=== PATIENT | male | born 1955 | race Hispanic/Latino ===

== ENCOUNTER 2019-02-16 17:54 | Inpatient (IN) | payer OTHER, MEDICARE ==
--- NOTE | 2019-02-16 18:36 | Emergency Department Report ---
HPI - General Chief Complaint: Dyspnea/Respdistress Time Seen by Provider: 02/16/19 18:24 - HPI HPI: 63-year-old male presents to the emergency department by EMS with complaint of shortness of breath, syncope versus near syncope, and a questionab le arrhythmia. The patient and his were driving on their way home to [place] when they stopped at a rest stop. The patient was using the restroom and was bending over to lift up his pants when he became lightheaded and fell face down. The patient says that he does not think he lost consciousness and remembers this occurring but he was too weak to get up and his family was unable to lift him. EMS was called and the patient was found to have a pulse ox of 73%. He had an EKG done that at one point looks suspicious for a slow V. tach or arrhythmia. The patient has a past medical history of coronary artery disease with 3 previous FL and 5 stents. He also has a hx of COPD but is not antoniet[place] e O2 dependent, and a hx of paroxysmal A-fib but not on blood thinners. He has both a PCP and a delivery consultant in [place]. ED Past Medical Hx - Past Medical History Previous Medical History?: Yes Hx Hypertension: Yes Hx Heart Attack/AMI: Yes (x3) Additional medical history: Cardiomyopathy, COPD, A-fib, - Surgical History Past Surgical History?: Yes Additional Surgical History: 5 cardiac stents - Social History Smoking Status: Never Smoker ED Review of Systems ROS: Stated complaint: NASRIN Other details as noted in HPI Comment: All other systems reviewed and negative Constitutional: weakness. denies: chills, fever Eyes: denies: eye pain, vision change ENT: denies: ear pain, throat pain Respiratory: shortness of breath. denies: cough Cardiovascular: syncope (vs near syncope). denies: chest pain, palpitations Gastrointestinal: denies: abdominal pain, vomiting Genitourinary: denies: dysuria, discharge Musculoskeletal: denies: back pain, arthralgia Skin: denies: rash, lesions Neurological: other (lightheaded, dizzy). denies: headache Physical Exam - Physical Exam Vital Signs: Vital Signs 02/16/19 18:04 Temperature 98.2 F Physical Exam: GENERAL: The patient is well-developed well-nourished. HENT: Normocephalic. Atraumatic. Patient has moist mucous membranes. EYES: Extraocular motions are intact. Pupils equal reactive to light bilaterally. NECK: Supple. Trachea is midline. CHEST/LUNGS: Clear to auscultation. There is no respiratory distress noted. HEART/CARDIOVASCULAR: Regular. There is no tachycardia. There is no murmur. ABDOMEN: Abdomen is soft, nontender. Patient has normal bowel sounds. There is no abdominal distention. SKIN: There is a 0.5 superficial laceration to the lower mid forehead. There is a 1 cm superficial linear laceration to the nasal bridge. NEURO: The patient is awake, alert, and oriented. The patient is cooperative. The patient has no focal neurologic deficits. The patient has normal speech. MUSCULOSKELETAL: There is no tenderness or deformity. There is no evidence of acute injury. ED Course Vital Signs 02/16/19 18:04 Temperature 98.2 F - Consultations Consultation #1: 02/16/19 23:44 I spoke with the delivery consultant university controller, Dr Ledbetter, who is aware of the patient's presentation, ED course and plan for admission. He will consult on the patient. - Procedure Description Procedures done: The small forehead and nasal bridge lacerations were repaired with Steri-Strips and Dermabond. ED Medical Decision Making - Lab Data Result diagrams: 02/16/19 18:40 02/16/19 18:40 - EKG Data -: EKG Interpreted by Me EKG shows normal: sinus rhythm (junctional rhythm), axis, intervals (prolonged QTC), QRS complexes (Q waves to the anterior leads), ST-T waves (nonspecific ST- T waves) Rate: tachycardia (101 bpm) - EKG Data When compared to previous EKG there are: previous EKG unavailable Interpretation: other (junctional rhythm, normal axis, prolonged QTC, Q waves in the anterior leads, nonspecific ST-T waves) - Radiology Data Radiology results: report reviewed, image reviewed interpreted by me: Chest x-ray does not show any pneumonia, pleural effusions, pneumothorax, focal consolidation, or any other acute process. CTA CHEST WITH IV CONTRAST INDICATION / CLINICAL INFORMATION: Syncope, elevated dimer. TECHNIQUE: Axial CT images were obtained through the chest after injection of 100 cc IV contrast. 3 plane MIP and/or 3D reconstructions were produced. All CT scans at this location are performed using CT dose reduction for ALARA by means of automated exposure control. COMPARISON: Portable chest radiograph, 02/16/2019 FINDINGS: PULMONARY ARTERIES: No pulmonary emboli. THORACIC AORTA: There is mild to moderate calcific plaque throughout the thoracic aorta but no evidence of dissection or aneurysm. HEART: No significant abnormality. CORONARY ARTERIES: Coronary artery calcification is present. PLEURA: No pleural effusion. No pneumothorax. LYMPH NODES: No significant adenopathy. LUNGS: There is prominent emphysema present with chronic appearing interstitial lung disease. No focal area of pneumonia or mass identified. ADDITIONAL FINDINGS: None. UPPER ABDOMEN: No acute findings. SKELETAL STRUCTURES: Mild spondylitic changes present throughout the thoracic spine. IMPRESSION: 1. No CT evidence for pulmonary embolism. No evidence for pneumonia. 2. Severe COPD with chronic interstitial lung disease. 3. Atherosclerotic plaque identified in the thoracic aorta and coronary arteries. CT head/brain wo con INDICATION: dizziness. TECHNIQUE: All CT scans at this location are performed using CT dose reduction for ALARA by means of automated exposure control. COMPARISON: None available. FINDINGS: There is some increased opacity in the left mastoid sinus, possibly representing mastoiditis. Postop change in both maxillary sinuses, with creation of nasal antral windows. Ventricles are symmetrical and normal in size. Very mild cortical involution. No mass, hemorrhage or other acute abnormality. IMPRESSION: 1. No acute abnormality. CT facial bones wo con INDICATION / CLINICAL INFORMATION: facial trauma. TECHNIQUE: Axial CT imaging of the maxillofacial bones was obtained without IV contrast. Coronal and sagittal reformatted imaging obtained and reviewed. All CT scans at this location are performed using CT dose reduction for ALARA by means of automated exposure control. COMPARISON: None available. FINDINGS: I see no evidence for facial bone fracture. The orbits and sinuses are intact. Small amount of mucosal thickening is present in the left maxillary antrum. The remainder of the paranasal sinuses are well aerated and clear. No significant soft tissue abnormality. IMPRESSION: 1. No evidence for facial bone fracture. 2. Small amount of mucosal thickening within the left maxillary antrum. - Medical Decision Making This patient presents to the emergency department with a complaint of a syncopal versus near syncopal episode that occurred at a rest stop. He had some subsequent dizziness/lightheadedness. His first EKG did not show any signs of ST elevation FL but did have a prolonged QTC of greater than 600. CT of the head did not show any bleed, shift, mass, ischemia or any other acute process. CT of the facial bones did not show any fracture, dislocation or any acute process. The patient had an elevated d-dimer level so a CT angiography of the chest was done that did not show any signs of pulmonary embolism or any other acute process. The patient did have some elevation in his troponins with the first one at 0.066 and then increased to 0.214. Patient has been placed on a heparin drip. Cardiology has been contacted and consult. The patient has been accepted for admission by the hospitalist, Dr. Barraza. - Differential Diagnosis NSTEMI, PE, dysrhythmia, pneumonia Critical Care Time: Yes Critical care time in (mins) excluding proc time.: 35 Critical care attestation.: If time is entered above; I have spent that time in minutes in the direct care of this critically ill patient, excluding procedure time. Critical care time was spent on this patient and during his initial evaluation, multiple re- evaluations, ordering and interpretation of labs and imaging, discussion with the delivery consultant and hospitalist. Critical Care Time: 35 minutes ED Disposition Clinical Impression: NSTEMI (non-ST elevated myocardial infarction), Near syncope, Dizziness Disposition: 09 OP ADMIT IP TO THIS HOSP Is pt being admited?: Yes Condition: Serious Referrals: DAVID GOMEZ MD [Primary Care Provider] - 3-5 Days Time of Disposition: 00:05
--- NOTE | 2019-02-16 19:01 | XRay Report ---
CHEST 1 VIEW INDICATION: Chest Pain COMPARISON: None FINDINGS: Support devices: None Heart: Normal Lungs/Pleura: Chronic appearing interstitial lung disease. No convincing evidence of acute superimpos ed disease. IMPRESSION: 1. Chronic interstitial lung disease. No definite acute disease. Signer Name: Jayy Lee MD Signed: 02/16/2019 6:56 PM Workstation Name: [id number]
[2019-02-16 19:23] LABS: Basophils % (Auto) 0.3 % (0.0-1.8); Eosinophils # (Auto) 0.1 K/mm3 (0.0-0.4); Eosinophils % (Auto) 0.9 % (0.0-4.3); Hematocrit 42.2 % (35.5-45.6); Lymphocytes # (Auto) 0.7 K/mm3 (1.2-5.4); Lymphocytes % (Auto) 5.8 % (13.4-35.0); Mean Corpuscular HGB Conc 33 % (32-34); Mean Corpuscular Volume 85 fl (84-94); Monocytes # (Auto) 0.5 K/mm3 (0.0-0.8); Monocytes % (Auto) 4.6 % (0.0-7.3); Platelet Count 303 K/mm3 (140-440); Red Blood Count 4.94 M/mm3 (3.65-5.03); Red Cell Distribution Width 16.3 % (13.2-15.2)
[2019-02-16 19:39] LABS: Calcium 9.3 mg/dL (8.4-10.2); Partial Thromboplastin Time 24.7 Sec. (24.2-36.6)
[2019-02-16] MEDS ORDERED: NACL 0.9% 250ML 250 ML IV ONE (19:54)
[2019-02-16 20:22] LABS: Chol/HDL Ratio 3.69 %
--- NOTE | 2019-02-16 23:14 | Cat Scan Report ---
CT facial bones wo con INDICATION / CLINICAL INFORMATION: facial trauma. TECHNIQUE: Axial CT imaging of the maxillofacial bones was obtained without IV contrast. Coronal and sagittal re formatted imaging obtained and reviewed. All CT scans at this location are performed using CT dose re duction for ALARA by means of automated exposure control. COMPARISON: None available. FINDINGS: I see no evidence for facial bone fracture. The orbits and sinuses are intact. Small amount of mucosa l thickening is present in the left maxillary antrum. The remainder of the paranasal sinuses are well aerated and clear. No significant soft tissue abnormality. IMPRESSION: 1. No evidence for facial bone fracture. 2. Small amount of mucosal thickening within the left maxillary antrum. Signer Name: Reanna Atkinson MD Signed: 02/16/2019 11:09 PM Workstation Name: [id number]
--- NOTE | 2019-02-16 23:22 | Cat Scan Report ---
CTA CHEST WITH IV CONTRAST INDICATION / CLINICAL INFORMATION: Syncope, elevated dimer. TECHNIQUE: Axial CT images were obtained through the chest after injection of 100 cc IV contrast. 3 plane MIP an d/or 3D reconstructions were produced. All CT scans at this location are performed using CT dose redu ction for [facility] by means of automated exposure control. COMPARISON: Portable chest radiograph, 02/16/2019 FINDINGS: PULMONARY ARTERIES: No pulmonary emboli. THORACIC AORTA: There is mild to moderate calcific plaque throughout the thoracic aorta but no eviden ce of dissection or aneurysm. HEART: No significant abnormality. CORONARY ARTERIES: Coronary artery calcification is present. PLEURA: No pleural effusion. No pneumothorax. LYMPH NODES: No significant adenopathy. LUNGS: There is prominent emphysema present with chronic appearing interstitial lung disease. No foca l area of pneumonia or mass identified. ADDITIONAL FINDINGS: None. UPPER ABDOMEN: No acute findings. SKELETAL STRUCTURES: Mild spondylitic changes present throughout the thoracic spine. IMPRESSION: 1. No CT evidence for pulmonary embolism. No evidence for pneumonia. 2. Severe COPD with chronic interstitial lung disease. 3. Atherosclerotic plaque identified in the thoracic aorta and coronary arteries. Signer Name: Reanna Atkinson MD Signed: 02/16/2019 11:17 PM Workstation Name: [id number]
--- NOTE | 2019-02-16 23:24 | Cat Scan Report ---
CT head/brain wo con INDICATION: dizziness. TECHNIQUE: All CT scans at this location are performed using CT dose reduction for ALARA by means of automated e xposure control. COMPARISON: None available. FINDINGS: There is some increased opacity in the left mastoid sinus, possibly representing mastoiditis. Postop change in both maxillary sinuses, with creation of nasal antral windows. Ventricles are symmetrical and normal in size. Very mild cortical involution. No mass, hemorrhage or other acute abnormality. IMPRESSION: 1. No acute abnormality. Signer Name: Jayy Lee MD Signed: 02/16/2019 11:19 PM Workstation Name: [id number]
[2019-02-16] MEDS ORDERED: BABY ASPIRIN PO ONE (23:29)
[2019-02-16] MEDS ORDERED: HEPARIN 10,000 UNITS/10 ML IV ONE (23:29)
[2019-02-17] MEDS: HEPARIN/ 0.45% NACL-25,000 UNIT/500 ML 25,000 UNIT/500 ML BAG IV SCH ×2 (00:49→23:39)
[2019-02-17] MEDS ORDERED: NEO-SYNEPHRINE 100 MG in NACL 0.9% 90 ML IV SCH ×2 (01:30)
[2019-02-17] MEDS ORDERED: TYLENOL PO PRN (01:59)
[2019-02-17] MEDS ORDERED: MORPHINE IV PRN (01:59)
[2019-02-17] MEDS ORDERED: SODIUM CHLORIDE FLUSH SYRINGE 10 ML IV PRN (01:59)
[2019-02-17] MEDS ORDERED: ZOFRAN IV PRN (01:59)
[2019-02-17] MEDS ORDERED: NACL 0.45% 1000 ML 1,000 ML IV SCH (02:00)
--- NOTE | 2019-02-17 02:18 | History and Physical Report ---
History of Present Illness Date of examination: 02/17/19 Chief complaint: SOB and syncope while in the bathroom History of present illness: 63-year-old male with PMH of Systolic Cardiomyopathy, CAD, s/p 5 stents,last stents placed in 2004 and on disability presents to the emergency department by EMS with complaint of shortness of breath and fall as he was putting up his pants after defecating in the bathroom. He says he got dizzy and fell forward and hitting his face/nose. He denies any LOC nor did he have any Substernal CP he reports. The patient and his were driving on their way home to [place] when they stopped at a rest stop. The patient says that he does not think he lost consciousness and remembers this occurring but he was too weak to get up and his family was unable to lift him. EMS was summoned and the patient was found to have a pulse ox of 73%. He had an EKG done that at one point that according to the ED physician; looks suspicious for a slow V. tach or arrhythmia. The patient has a past medical history of coronary artery disease with 3 previous [place] and 5 stents. He also has a hx of COPD but is not home O2 dependent, and a hx of paroxysmal A-fib. of note, he is on Plavix and 81mg of Aspirin . He has both a PCP and a runner out - Dr garcia at [facility] Phys[facility] Medications and Allergies Allergies Allergy/AdvReac Type Severity Reaction Status Date / Time Penicillins Allergy Rash Verified 02/16/19 18:04 Sulfa (Sulfonamide Allergy Rash Verified 02/16/19 18:04 Antibiotics) Active Meds: Active Medications Acetaminophen (Tylenol) 650 mg PO Q4H PRN PRN Reason: Pain MILD(1-3)/Fever >100.5/OSBORNE Heparin Sodium/Sodium Chloride (Heparin/ 0.45% Nacl-25,000 Unit/500 Ml) 25,000 unit in 500 mls @ 20 mls/hr IV TITRATE DEANDRA; Protocol Last Admin: 02/17/19 00:49 Dose: 1,000 units/hr, 20 mls/hr Documented by: Ondansetron HCl (Zofran) 4 mg IV Q8H PRN PRN Reason: Nausea And Vomiting Sodium Chloride (Sodium Chloride Flush Syringe 10 Ml) 10 ml IV BID DEANDRA Sodium Chloride (Sodium Chloride Flush Syringe 10 Ml) 10 ml IV PRN PRN PRN Reason: LINE FLUSH Review of Systems Constitutional: weakness Exam - Constitutional Vitals: Temp Pulse Resp BP Pulse Ox 98.6 F 89 11 L 117/76 95 02/16/19 22:00 02/16/19 23:50 02/16/19 23:50 02/16/19 23:50 02/16/19 23:50 General appearance: Present: no acute distress, well-nourished - EENT Eyes: Present: PERRL ENT: hearing intact, clear oral mucosa - Neck Neck: Present: supple, normal ROM - Respiratory Respiratory effort: normal Respiratory: bilateral: CTA - Cardiovascular Heart Sounds: Present: S1 & S2. Absent: rub, click - Extremities Extremities: pulses symmetrical, No edema Peripheral Pulses: within normal limits - Abdominal General gastrointestinal: Present: soft, non-tender, non-distended, normal bowel sounds Male genitourinary: Present: normal - Integumentary Integumentary: Present: clear, warm, dry - Musculoskeletal Musculoskeletal: gait normal, strength equal bilaterally - Psychiatric Psychiatric: appropriate mood/affect, intact judgment & insight - Neurologic Neurologic: CNII-XII intact, moves all extremities Results - Labs CBC & Chem 7: 02/16/19 18:40 02/16/19 18:40 Labs: Laboratory Last Values WBC 11.6 K/mm3 (4.5-11.0) H 02/16/19 18:40 RBC 4.94 M/mm3 (3.65-5.03) 02/16/19 18:40 Hgb 14.0 gm/dl (11.8-15.2) 02/16/19 18:40 Hct 42.2 % (35.5-45.6) 02/16/19 18:40 MCV 85 fl (84-94) 02/16/19 18:40 MCH 28 pg (28-32) 02/16/19 18:40 MCHC 33 % (32-34) 02/16/19 18:40 RDW 16.3 % (13.2-15.2) H 02/16/19 18:40 Plt Count 303 K/mm3 (140-440) 02/16/19 18:40 Lymph % (Auto) 5.8 % (13.4-35.0) L 02/16/19 18:40 [place] % (Auto) 4.6 % (0.0-7.3) 02/16/19 18:40 Eos % (Auto) 0.9 % (0.0-4.3) 02/16/19 18:40 Baso % (Auto) 0.3 % (0.0-1.8) 02/16/19 18:40 Lymph # 0.7 K/mm3 (1.2-5.4) L 02/16/19 18:40 [place] # 0.5 K/mm3 (0.0-0.8) 02/16/19 18:40 Eos # 0.1 K/mm3 (0.0-0.4) 02/16/19 18:40 Baso # 0.0 K/mm3 (0.0-0.1) 02/16/19 18:40 Seg Neutrophils % 88.4 % (40.0-70.0) H 02/16/19 18:40 Seg Neutrophils # 10.3 K/mm3 (1.8-7.7) H 02/16/19 18:40 PT 12.9 Sec. (12.2-14.9) 02/16/19 18:40 INR 1.00 (0.87-1.13) 02/16/19 18:40 APTT 24.7 Sec. (24.2-36.6) 02/16/19 18:40 1717.53 ng/mlDDU (0-234) H 02/16/19 18:40 Sodium 142 mmol/L (137-145) 02/16/19 18:40 Potassium 4.0 mmol/L (3.6-5.0) 02/16/19 18:40 Chloride 101.2 mmol/L (98-107) 02/16/19 18:40 Carbon Dioxide 19 mmol/L (22-30) L 02/16/19 18:40 26 mmol/L 02/16/19 18:40 BUN 26 mg/dL (9-20) H 02/16/19 18:40 1.3 mg/dL (0.8-1.5) 02/16/19 18:40 Estimated GFR 55 ml/min 02/16/19 18:40 20 % 02/16/19 18:40 Glucose 234 mg/dL (75-100) H 02/16/19 18:40 Calcium 9.3 mg/dL (8.4-10.2) 02/16/19 18:40 0.375 ng/mL (0.00-0.029) H* D 02/17/19 00:28 Triglycerides 238 mg/dL (2-149) H 02/16/19 18:40 Cholesterol 122 mg/dL (50-199) 02/16/19 18:40 64 mg/dL (50-130) 02/16/19 18:40 33 mg/dL (40-59) L 02/16/19 18:40 3.69 % 02/16/19 18:40 TSH 1.960 mlU/mL (0.270-4.200) 02/16/19 18:40 Assessment and Plan Assessment and plan: NSTEMi/ACS -with vasovagal phenomenon -steadily rising Troponin is present. 0.06--> 0.2--> 0.3 - pt denies any CP but feels he is SOB at times -On IV Heparin and this will be continued per protocol - Cardiology was notified in the ED - Keep NPO for prudence -monitor blood sugars Q4-6hrs Prolonged QT - due to cardiac ACS - repeat ECG ordered - telemetry at all times - Admit to cardiac step down - magnesium check CAD - cardiac pt - continue cardiac meds - analgesics PRN
[2019-02-17] MEDS: PEPCID IV SCH ×3 (06:48→21:22)
[2019-02-17] MEDS ORDERED: ZESTRIL PO SCH (10:00)
[2019-02-17] MEDS ORDERED: LOPRESSOR PO SCH (10:00)
[2019-02-17] MEDS ORDERED: LIRAGLUTIDE 1.2 MG SQ SCH (10:00)
[2019-02-17] MEDS ORDERED: SODIUM CHLORIDE FLUSH SYRINGE 10 ML IV SCH (10:00)
[2019-02-17] MEDS ORDERED: BREXPIPRAZOLE 2 MG PO SCH (10:00)
[2019-02-17] MEDS ORDERED: NON-FORMULARY (Bupropion Hcl [Wellbutrin Xl] 300 MG) PO SCH (10:00)
--- NOTE | 2019-02-17 10:19 | Consultation ---
History of Present Illness Consult date: 02/17/19 Requesting physician: LAEXA DENG Consult reason: elevated troponin History of present illness: The pt is a 63-year-old male with a past medical history of CAD s/p AMI with PCI x 5 in 2004 per pt report, HF with EF ~25% per pt report, HTN, DM, COPD, former tobacco use. 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 He presented with c/o near syncope, SOB and palpitations. He and his were driving to [place] from a vacation in [place] when they stopped at a gas station yesterday evening. Pt was using the restroom and was bending over to lift up his pants when he became lightheaded and fell face down. The patient says that he does not think he lost consciousness. While laying on the floor, he noted the onset of palpitations and developed SOB while trying to get up off the floor. Pt was too weak to get up and his family was unable to lift him and EMS was called. Upon EMS arrival, patient was found to have a pulse ox of 73% and EKG done in the field that shows apparent slow VT. Initial ECG in ED shows NSR with ST changes c/w ischemia and prolonged QT interval. Troponins were noted to be elevated and pt was initiated on heparin gtt overnight. Pt denies any occurrence of chest pain, n/v, diaphoresis. Pt maintained NSR overnight on telemetry and has no current cardiac complaints. Pt denies any prior diagnosis of cardiac arrhythmia, including atrial fibrillation or atrial flutter. Pt denies any stress testing or cardiac catheterization since his PCI in 2004. Past History Past Medical History: CAD, COPD, diabetes, heart failure, hypertension Social history: , lives with family, smoking (former). denies: alcohol abuse, prescription drug abuse Medications and Allergies Allergies Allergy/AdvReac Type Severity Reaction Status Date / Time Penicillins Allergy Rash Verified 02/16/19 18:04 Sulfa (Sulfonamide Allergy Rash Verified 02/16/19 18:04 Antibiotics) Home Medications Medication Instructions Recorded Confirmed Last Taken Type Atorvastatin [Lipitor Tab] 80 mg PO QHS 02/17/19 02/17/19 Unknown History Azelastine 0.1% (Nf) [Astelin (Nf)] 1 spray NS DAILY 02/17/19 02/17/19 Unknown History Brexpiprazole [Rexulti] 2 mg PO DAILY 02/17/19 02/17/19 Unknown History Bupropion HCl [Wellbutrin XL] 300 mg PO QAM 02/17/19 02/17/19 Unknown History Carvedilol [Coreg] 25 mg PO BID 02/17/19 02/17/19 Unknown History Clopidogrel [Plavix] 75 mg PO QDAY 02/17/19 02/17/19 Unknown History Eluxadoline [Viberzi] 100 mg PO BID 02/17/19 02/17/19 Unknown History Empagliflozin [Jardiance] 25 mg PO DAILY 02/17/19 02/17/19 Unknown History Ezetimibe [Zetia] 10 mg PO QDAY 02/17/19 02/17/19 Unknown History FLUoxetine [PROzac] 20 mg PO BID 02/17/19 02/17/19 Unknown History ISOSORBIDE MONOnitrate [Imdur ER] 120 mg PO QDAY 02/17/19 02/17/19 Unknown History Insulin Detemir [Levemir VIAL] 20 unit SQ QHS 02/17/19 02/17/19 Unknown History Liraglutide [Victoza 2-Paco] 1.2 mg SQ QDAY 02/17/19 02/17/19 Unknown History Lisinopril [Zestril TAB] 40 mg PO QDAY 02/17/19 02/17/19 Unknown History Loperamide [Imodium] 2 mg PO QID 02/17/19 02/17/19 Unknown History Omeprazole 20 mg PO DAILY 02/17/19 02/17/19 Unknown History Potassium Bicarb/Citrate [Klor-Con] 20 meq PO QDAY 02/17/19 02/17/19 Unknown History Umeclidinium Brm/Vilanterol Tr 1 each IH DAILY 02/17/19 02/17/19 Unknown History [Anoro Ellipta 62.5-25 Mcg INH] hydroCHLOROthiazide 25 mg PO DAILY 02/17/19 02/17/19 Unknown History [Hydrochlorothiazide] metFORMIN XR [Glucophage XR] 500 mg PO BID 02/17/19 02/17/19 Unknown History Active Meds: Active Medications Acetaminophen (Tylenol) 650 mg PO Q4H PRN PRN Reason: Pain MILD(1-3)/Fever >100.5/[place] Last Admin: 02/17/19 06:48 Dose: 650 mg Documented by: Aspirin (Aspirin) 325 mg PO QDAY [facility] Carvedilol (Coreg) 25 mg PO BID [facility] Clopidogrel Bisulfate (Plavix) 75 mg PO QDAY [facility] Ezetimibe (Zetia) 10 mg PO QDAY [facility] Famotidine (Pepcid) 20 mg IV BID [facility] Last Admin: 02/17/19 06:48 Dose: 20 mg Documented by: Fluoxetine HCl (Prozac) 20 mg PO BID [facility] Heparin Sodium/Sodium Chloride (Heparin/ 0.45% Nacl-25,000 Unit/500 Ml) 25,000 unit in 500 mls @ 20 mls/hr IV TITRATE DEANDRA; Protocol Last Admin: 02/17/19 00:49 Dose: 1,000 units/hr, 20 mls/hr Documented by: Sodium Chloride (Nacl 0.45% 1000 Ml) 1,000 mls @ 75 mls/hr IV DIRECT DEANDRA Sodium Chloride (Nacl 0.9% 500 Ml) 500 mls @ 50 mls/hr IV DIRECT DEANDRA Stop: 02/17/19 20:59 Isosorbide Mononitrate (Imdur) 120 mg PO QDAY [facility] Lisinopril (Zestril) 40 mg PO QDAY [facility] Loperamide HCl (Imodium) 2 mg PO QID [facility] Miscellaneous Medication (Liraglutide [Victoza 2-Paco]) 1.2 mg SQ QDAY [facility] Miscellaneous Medication (Insulin Detemir [Levemir Vial]) 20 unit SQ QHS [facility] Miscellaneous Medication (Atorvastatin [Lipitor]) 80 mg PO QHS [facility] Miscellaneous Medication (Bupropion Hcl [Wellbutrin Xl]) 300 mg PO QAM [facility] Miscellaneous Medication (Brexpiprazole [Rexulti]) 2 mg PO DAILY [facility] Morphine Sulfate (Morphine) 2 mg IV Q4H PRN PRN Reason: Pain , Severe (7-10) Ondansetron HCl (Zofran) 4 mg IV Q8H PRN PRN Reason: Nausea And Vomiting Sodium Chloride (Sodium Chloride Flush Syringe 10 Ml) 10 ml IV BID [facility] Sodium Chloride (Sodium Chloride Flush Syringe 10 Ml) 10 ml IV PRN PRN PRN Reason: LINE FLUSH Review of Systems Constitutional: no weight loss, no weight gain, no fever, no chills, no sweats Ears, nose, mouth and throat: no ear pain, no nose pain, no sinus pressure, no sinus pain Cardiovascular: palpitations, rapid/irregular heart beat, lightheadedness, shortness of breath, dyspnea on exertion, no chest pain, no orthopnea, no edema, no syncope, no paroxysmal nocturnal dyspnea, no leg edema Respiratory: shortness of breath, dyspnea on exertion, no cough, no congestion, no pain on inspiration Gastrointestinal: no abdominal pain, no nausea, no vomiting, no diarrhea, no constipation, no change in bowel habits Genitourinary Male: no dysuria, no hematuria, no flank pain, no discharge, no urinary frequency, no urinary hesitancy Musculoskeletal: no neck stiffness, no neck pain, no shooting arm pain, no arm numbness/tingling, no low back pain, no shooting leg pain Integumentary: no rash, no pruritis, no redness, no sores, no wounds Neurological: no head injury, no paralysis, no weakness, no parathesias, no numbness, no tingling, no seizures, no syncope Psychiatric: no anxiety Endocrine: no cold intolerance, no heat intolerance Hematologic/Lymphatic: no easy bruising, no easy bleeding Allergic/Immunologic: no urticaria, no wheezing Physical Examination Vital Signs Temp 98.2 F 02/16/19 18:04 General appearance: no acute distress HEENT: Positive: PERRL, Normocephaly, Mucus Membranes Moist Neck: Positive: neck supple, trachea midline Cardiac: Positive: Reg Rate and Rhythm, S1/S2 Lungs: Positive: clear to auscultation Neuro: Positive: Grossly Intact Abdomen: Positive: Soft. Negative: Tender Skin: Negative: Rash, Wound Musculoskeletal: No Pain Extremities: Absent: edema Results 02/16/19 18:40 02/16/19 18:40 Coagulation 02/16/19 Range/Units 18:40 PT 12.9 (12.2-14.9) Sec. INR 1.00 (0.87-1.13) APTT 24.7 (24.2-36.6) Sec. Lipids 02/16/19 Range/Units 18:40 Triglycerides 238 H (2-149) mg/dL Cholesterol 122 (50-199) mg/dL HDL Cholesterol 33 L (40-59) mg/dL Cholesterol/HDL Ratio 3.69 % CBC 02/16/19 Range/Units 18:40 WBC 11.6 H (4.5-11.0) K/mm3 RBC 4.94 (3.65-5.03) M/mm3 Hgb 14.0 (11.8-15.2) gm/dl Hct 42.2 (35.5-45.6) % Plt Count 303 (140-440) K/mm3 Lymph # 0.7 L (1.2-5.4) K/mm3 [place] # 0.5 (0.0-0.8) K/mm3 Eos # 0.1 (0.0-0.4) K/mm3 Baso # 0.0 (0.0-0.1) K/mm3 Comprehensive Metabolic Panel 02/16/19 Range/Units 18:40 Sodium 142 (137-145) mmol/L Potassium 4.0 (3.6-5.0) mmol/L Chloride 101.2 (98-107) mmol/L Carbon Dioxide 19 L (22-30) mmol/L BUN 26 H (9-20) mg/dL Creatinine 1.3 (0.8-1.5) mg/dL Glucose 234 H (75-100) mg/dL Calcium 9.3 (8.4-10.2) mg/dL - Imaging and Cardiology Echo: pending Cardiac cath: pending EKG: report reviewed, image reviewed EKG interpretations - Telemetry EKG Rhythm: Sinus Rhythm - EKG Sinus rhythms and dysrhythmias: sinus rhythm Repolarization changes or abnormalities: ST or T wave suggestive of ischemia Assessment and Plan Currently stable cardiac status. Agree with present cardiac management. Coronary angiography recommended. Indications, potential risks and benefits of LHC reviewed with pt and he is agreeable to proceed in AM. NPO after MN. Obtain echo. Cont observation on telemetry. Further recs to follow per hospital course. The patient has been seen in conjunction with Dr. Kaplan who agrees with the assessment and plan of care. - Patient Problems (1) Acute coronary syndrome Current Visit: Yes Status: Acute (2) Ventricular tachycardia Current Visit: Yes Status: Acute (3) Abnormal ECG Current Visit: Yes Status: Acute (4) Near syncope Current Visit: Yes Status: Acute (5) CAD (coronary artery disease) Current Visit: Yes Status: Chronic (6) Stented coronary artery Current Visit: Yes Status: Chronic (7) HTN (hypertension) Current Visit: Yes Status: Chronic (8) Diabetes Current Visit: Yes Status: Chronic (9) COPD (chronic obstructive pulmonary disease) Current Visit: Yes Status: Chronic (10) History of heart failure Current Visit: Yes Status: Chronic (11) Prolonged QT interval Current Visit: Yes Status: Acute
[2019-02-17] MEDS: COREG PO SCH ×2 (10:52→21:21)
[2019-02-17] MEDS ORDERED: NACL 0.9% 500 ML 500 ML IV SCH (11:00)
--- NOTE | 2019-02-17 11:10 | Progress Note ---
Assessment and Plan Assessment and plan: --Non-ST elevation IA;Possible heart cath tomorrow Continue current cardiac medications, cardiology evaluation noted --History of coronary artery disease status post PCI; Continue Current cardiac medications, cardiology following --History of ventricular tachycardia; follow echocardiogram for LV function and ejection fraction Ejection fraction 25-30%, continue anti-failure medications, --Elevated D dimers; negative.PE, check lower extremity venous Doppler to rule out DVT --Near syncope; fall precautions, syncope workup as needed --Hypertension; moderate controlled, continue current antihypertensive --. DVT Prophylaxis; Lovenox Follow heart, if negative and patient is stable and may be discharged home tomorrow Plan of care reviewed with the patient and his NURSE History Interval history: Patient Seen and examined medical records reviewed Patient complains of mild dizziness Cardiology evaluation noted and appreciated Scheduled for heart cath tomorrow Hospitalist Physical - Constitutional Vitals: Temp Pulse Resp BP Pulse Ox 98.0 F 91 H 18 147/83 89 02/17/19 07:54 02/17/19 07:54 02/17/19 07:54 02/17/19 07:54 02/17/19 07:54 General appearance: Present: no acute distress, well-nourished, obese - EENT Eyes: Present: PERRL, EOM intact - Neck Neck: Present: supple, normal ROM - Respiratory Respiratory effort: normal Respiratory: bilateral: diminished, negative: rales, rhonchi, wheezing - Cardiovascular Rhythm: regular Heart Sounds: Present: S1 & S2 - Extremities Extremities: no ischemia, No edema - Abdominal General gastrointestinal: soft, non-tender, non-distended, normal bowel sounds - Integumentary Integumentary: Present: clear, warm - Psychiatric Psychiatric: appropriate mood/affect, cooperative - Neurologic Neurologic: moves all extremities Results - Labs CBC & Chem 7: 02/16/19 18:40 02/16/19 18:40 Labs: Laboratory Last Values WBC 11.6 K/mm3 (4.5-11.0) H 02/16/19 18:40 RBC 4.94 M/mm3 (3.65-5.03) 02/16/19 18:40 Hgb 14.0 gm/dl (11.8-15.2) 02/16/19 18:40 Hct 42.2 % (35.5-45.6) 02/16/19 18:40 MCV 85 fl (84-94) 02/16/19 18:40 MCH 28 pg (28-32) 02/16/19 18:40 MCHC 33 % (32-34) 02/16/19 18:40 RDW 16.3 % (13.2-15.2) H 02/16/19 18:40 Plt Count 303 K/mm3 (140-440) 02/16/19 18:40 Lymph % (Auto) 5.8 % (13.4-35.0) L 02/16/19 18:40 [place] % (Auto) 4.6 % (0.0-7.3) 02/16/19 18:40 Eos % (Auto) 0.9 % (0.0-4.3) 02/16/19 18:40 Baso % (Auto) 0.3 % (0.0-1.8) 02/16/19 18:40 Lymph # 0.7 K/mm3 (1.2-5.4) L 02/16/19 18:40 [place] # 0.5 K/mm3 (0.0-0.8) 02/16/19 18:40 Eos # 0.1 K/mm3 (0.0-0.4) 02/16/19 18:40 Baso # 0.0 K/mm3 (0.0-0.1) 02/16/19 18:40 Seg Neutrophils % 88.4 % (40.0-70.0) H 02/16/19 18:40 Seg Neutrophils # 10.3 K/mm3 (1.8-7.7) H 02/16/19 18:40 PT 12.9 Sec. (12.2-14.9) 02/16/19 18:40 INR 1.00 (0.87-1.13) 02/16/19 18:40 APTT 24.7 Sec. (24.2-36.6) 02/16/19 18:40 1717.53 ng/mlDDU (0-234) H 02/16/19 18:40 Heparin Anti-Xa Level 0.13 U.I./ml (0.3-0.7) L 02/17/19 07:52 Sodium 142 mmol/L (137-145) 02/16/19 18:40 Potassium 4.0 mmol/L (3.6-5.0) 02/16/19 18:40 Chloride 101.2 mmol/L (98-107) 02/16/19 18:40 Carbon Dioxide 19 mmol/L (22-30) L 02/16/19 18:40 26 mmol/L 02/16/19 18:40 BUN 26 mg/dL (9-20) H 02/16/19 18:40 1.3 mg/dL (0.8-1.5) 02/16/19 18:40 Estimated GFR 55 ml/min 02/16/19 18:40 20 % 02/16/19 18:40 Glucose 234 mg/dL (75-100) H 02/16/19 18:40 Calcium 9.3 mg/dL (8.4-10.2) 02/16/19 18:40 0.290 ng/mL (0.00-0.029) H* D 02/17/19 07:02 NT-Pro-B Natriuret Pep 2657 pg/mL (0-900) H 02/17/19 07:02 Triglycerides 238 mg/dL (2-149) H 02/16/19 18:40 Cholesterol 122 mg/dL (50-199) 02/16/19 18:40 64 mg/dL (50-130) 02/16/19 18:40 33 mg/dL (40-59) L 02/16/19 18:40 3.69 % 02/16/19 18:40 TSH 1.960 mlU/mL (0.270-4.200) 02/16/19 18:40 Active Medications - Current Medications Current Medications: Generic Name Dose Route Start Last Admin Trade Name Freq PRN Reason Stop Dose Admin Acetaminophen 650 mg 02/17/19 01:59 02/17/19 06:48 Tylenol PO 650 mg Q4H PRN Administration Pain MILD(1-3)/Fever >100.5/[place] Aspirin 325 mg 02/18/19 10:00 Aspirin PO QDAY [facility] Atorvastatin Calcium 80 mg 02/17/19 22:00 Lipitor PO QHS [facility] Bupropion HCl 300 mg 02/17/19 12:00 Wellbutrin Xl PO DAILY [facility] Carvedilol 25 mg 02/17/19 10:00 02/17/19 10:52 Coreg PO 25 mg BID DEANDRA Administration Clopidogrel Bisulfate 75 mg 02/17/19 10:00 Plavix PO QDAY [facility] Ezetimibe 10 mg 02/17/19 11:00 Zetia PO QDAY [facility] Famotidine 20 mg 02/17/19 03:00 02/17/19 10:53 Pepcid IV 20 mg BID DEANDRA Administration Fluoxetine HCl 20 mg 02/17/19 10:00 Prozac PO BID [facility] Heparin Sodium/Sodium Chloride 25,000 unit in 500 mls @ 20 mls/hr 02/16/19 23:45 02/17/19 00:49 Heparin/ 0.45% Nacl-25,000 Unit/500 Ml IV 1,000 units/hr TITRATE DEANDRA 20 mls/hr Administration Protocol 1,000 UNITS/HR Sodium Chloride 1,000 mls @ 75 mls/hr 02/17/19 02:00 Nacl 0.45% 1000 Ml IV DIRECT [facility] Sodium Chloride 500 mls @ 50 mls/hr 02/17/19 11:00 Nacl 0.9% 500 Ml IV 02/17/19 20:59 DIRECT [facility] Insulin Glargine 20 units 02/17/19 22:00 Lantus SUB-Q QHS [facility] Isosorbide Mononitrate 120 mg 02/17/19 10:00 Imdur PO QDAY [facility] Lisinopril 40 mg 02/17/19 11:00 Zestril PO QDAY [facility] Loperamide HCl 2 mg 02/17/19 11:00 Imodium PO QID [facility] Miscellaneous Medication 1.2 mg 02/17/19 10:00 Liraglutide [Victoza 2-Paco] SQ QDAY [facility] Miscellaneous Medication 2 mg 02/17/19 10:00 Brexpiprazole [Rexulti] PO DAILY [facility] Morphine Sulfate 2 mg 02/17/19 01:59 Morphine IV Q4H PRN Pain , Severe (7-10) Ondansetron HCl 4 mg 02/17/19 01:59 Zofran IV Q8H PRN Nausea And Vomiting Sodium Chloride 10 ml 02/17/19 10:00 Sodium Chloride Flush Syringe 10 Ml IV BID [facility] Sodium Chloride 10 ml 02/17/19 01:59 Sodium Chloride Flush Syringe 10 Ml IV PRN PRN LINE FLUSH
[2019-02-17] MEDS: WELLBUTRIN XL PO SCH (14:50)
[2019-02-17] MEDS: PROzac PO SCH ×2 (14:50→21:21)
[2019-02-17] MEDS: IMODIUM PO SCH ×3 (14:50→21:20)
[2019-02-17] MEDS: PLAVIX PO SCH (14:50)
[2019-02-17] MEDS: ZETIA PO SCH (14:51)
[2019-02-17] MEDS: IMDUR PO SCH (14:51)
[2019-02-17] MEDS: ZESTRIL PO SCH (14:51)
[2019-02-17] MEDS: HumaLOG SUB-Q SCH (21:23)
[2019-02-17] MEDS ORDERED: LANTUS SUB-Q SCH (22:00)
[2019-02-17] MEDS ORDERED: NON-FORMULARY (Atorvastatin [Lipitor] 80 MG) PO SCH (22:00)
[2019-02-17] MEDS ORDERED: NON-FORMULARY (Insulin Detemir [Levemir Vial] 20 UNIT) SQ SCH (22:00)
[2019-02-18 05:36] LABS: Basophils % (Auto) 0.4 % (0.0-1.8); Eosinophils # (Auto) 0.2 K/mm3 (0.0-0.4); Eosinophils % (Auto) 2.8 % (0.0-4.3); Hematocrit 38.5 % (35.5-45.6); Hemoglobin 12.9 gm/dl (11.8-15.2); Lymphocytes # (Auto) 1.1 K/mm3 (1.2-5.4); Mean Corpuscular HGB Conc 34 % (32-34); Mean Corpuscular Volume 85 fl (84-94); Monocytes # (Auto) 0.6 K/mm3 (0.0-0.8); Monocytes % (Auto) 8.5 % (0.0-7.3); Platelet Count 238 K/mm3 (140-440); Red Blood Count 4.55 M/mm3 (3.65-5.03); Red Cell Distribution Width 16.5 % (13.2-15.2)
[2019-02-18 05:51] LABS: INR 1.14 (0.87-1.13)
[2019-02-18 05:59] LABS: BUN/Creatinine Ratio 21; Blood Urea Nitrogen 21 mg/dL (9-20); Calcium 8.8 mg/dL (8.4-10.2); Hemolysis Index 32
[2019-02-18] MEDS ORDERED: K-DUR PO ONE (06:23)
[2019-02-18] MEDS ORDERED: NACL 0.9% 500 ML 500 ML ONE (06:37)
[2019-02-18] MEDS ORDERED: ASPIRIN ONE (07:04)
[2019-02-18] MEDS: HumaLOG SUB-Q SCH ×2 (08:00→12:20)
[2019-02-18] MEDS ORDERED: XYLOCAINE 2% INFILTRATI ONE (08:19)
[2019-02-18] MEDS ORDERED: CALAN ONE (08:19)
[2019-02-18] MEDS ORDERED: HEPARIN/NS 5000 UNIT/500ML(CATH LAB) 1,000 ML IR ONE (08:19)
[2019-02-18] MEDS ORDERED: NITROGLYCERIN SYRINGE 0 ML ONE (08:19)
[2019-02-18] MEDS ORDERED: HEPARIN 10,000 UNITS/10 ML ONE (08:19)
[2019-02-18] MEDS ORDERED: VERSED ONE (08:40)
[2019-02-18] MEDS ORDERED: SUBLIMAZE ONE (08:40)
--- NOTE | 2019-02-18 09:43 | Cardiac Catherization Report ---
INDICATION FOR PROCEDURE: A 63-year-old white gentleman who used to live in [place] who had multiple interventions done at [facility] since 2004, history of cardiomyopathy, history of congestive heart failure, history of chronic obstructive pulmonary disease, presented to the Emergency Room with chest pain and falling down in the bathroom. The patient was noted to have slow wide QRS rhythm. Subsequently, the patient is being treated for non-STEMI and scheduled for cardiac catheterization for definitive diagnosis and treatment. The patient is accompanied by his . The patient has multiple stents in the past starting in 2004. Apparently according to the , there is a lesion in the back of the heart, which was 95% and was felt to be not amenable to angioplasty long time ago. Otherwise, the patient is being continued on medical therapy, being followed in [place]. DESCRIPTION OF PROCEDURE: The patient was brought to the catheterization laboratory in a fasting condition. Right wrist area and forearm thoroughly cleansed with Betadine solution. Sterile drapes were applied. The patient was evaluated for IV sedation for moderate sedation. He was felt to be appropriate cannulate; however, with underlying COPD, caution being exercised. The patient was sedated with IV Versed and fentanyl starting at 8:51 a.m. He was monitored up to 9:15 a.m. continuously with EKG monitoring, pulse oximetry and hemodynamic monitoring. Monitoring and ended at 9:15 a.m. and at the end of the procedure, the patient is comfortable, breathing normally and acting normally and moving all the extremities. After obtaining the right radial access, 5-Ukrainian slender sheath was introduced and 5 mg of intra-arterial verapamil and 3000 units of intravenous heparin was given. Subsequently, a 6-Ukrainian multipurpose catheter was used to obtain the angiograms of left ventricle done in BEEBE projection using hand injections and angiograms of the left coronary artery in multiple views and angiograms of the right coronary artery in multiple views. At the end of the procedure, catheter and sheath were removed and good hemostasis was achieved with radial band. No untoward complications noted. As mentioned above, the patient was monitored for moderate sedation throughout the procedure and the patient is able to tolerate it well. Following findings were noted. HEMODYNAMICS: 1. Opening aortic pressure 131/62, left ventricular pressure 131/12. No gradient across the aortic valve. Estimated ejection fraction 55%. 2. Left ventriculogram done in BEEBE projection showed normal-sized left ventricle, normal contractility. Only limited amount of dye was injected. Mitral regurgitation could not be evaluated because of limited amount of dye. 3. Right coronary artery dominant vessel shows stent to the area in the proximal and mid and distal RCA. Stents appear to be widely patent and distal RCA including large PDA and LV branch show only mild disease. 4. Left coronary artery arises normally from left coronary cusp. Distal left main shows 20% smooth lesion. LAD shows diffuse very mild irregularities in the proximal diagonal branch shows 20-30% smooth lesion. 5. Circumflex artery relatively small caliber vessel shows long lesion approaching 90% or so, but however, this is very, very small caliber vessel. 5. Collaterals none. FINAL IMPRESSION: 1. Normal-sized left ventricle with normal contractility. 2. Patent stents in the right coronary artery with no significant disease elsewhere except in a very, very small caliber distal marginal branch. This lesion of the distal marginal branch according to the patient's is chronic lesion noted many years ago. Considering this patient will be continued on previous medical therapy. Procedure was uncomplicated. No hematoma noted in the right wrist area. Findings were explained to the patient and . JOB# [id number] DORA/BOOM
[2019-02-18] MEDS ORDERED: ASPIRIN PO SCH (10:00)
--- NOTE | 2019-02-18 10:28 | Progress Note ---
Assessment and Plan S/p C today which showed patent stents in RCA with no significant disease elsewhere except in a very small caliber distal marginal branch, EF 55%. Echo reviewed - EF 25-30%, mild LVH, grade 2 diastolic dysfunction, RVSP 40mmHg, no significant valvular abnormalities. Discrepancy in cath EF and echo EF noted. Pt noted to have slow VT on EMS ECG and also prolonged QT interval on serial ECGs during this hospitalization. Electrolytes WNL, coronaries patent, EF questionably reduced. He has had no reoccurrence of VT since admission. EP co nsultation and potentially cardiac defibrillator (LifeVest) recommended in setting of these issues. However, pt is from [place] and is in transit back to [place]. Pt has a primary diesel tractor engine mechanic that he regularly sees in [place], Dr. Darrel Sandhu. Recommendations reviewed with pt and pt's at bedside and they decline EP consultation or LifeVest at this time. They wish to be discharged home so that they can return to [place]. They would like to continue pt's cardiac care with pt's primary diesel tractor engine mechanic, Dr. Sandhu, and state that they will arrange a follow up appointment with Dr. Sandhu as soon as they return to [place]. They verbalize understanding of pt's current diagnoses and are willing to assume the potential risks associated with pt being discharged home without a cardiac defibrillator. The patient has been seen in conjunction with Dr. Kaplan who agrees with the assessment and plan of care. - Patient Problems (1) Acute coronary syndrome Current Visit: Yes Status: Acute (2) Ventricular tachycardia Current Visit: Yes Status: Acute (3) Abnormal ECG Current Visit: Yes Status: Acute (4) Near syncope Current Visit: Yes Status: Acute (5) CAD (coronary artery disease) Current Visit: Yes Status: Chronic (6) Stented coronary artery Current Visit: Yes Status: Chronic (7) HTN (hypertension) Current Visit: Yes Status: Chronic (8) Diabetes Current Visit: Yes Status: Chronic (9) COPD (chronic obstructive pulmonary disease) Current Visit: Yes Status: Chronic (10) History of heart failure Current Visit: Yes Status: Chronic (11) Prolonged QT interval Current Visit: Yes Status: Acute Subjective Date of service: 02/18/19 Principal diagnosis: nstemi Interval history: pt for [facility]. no current cardiac complaints. Objective Last Vital Signs Temp 97.4 F L 02/18/19 04:31 Pulse 77 02/18/19 04:31 Resp 20 02/18/19 04:31 BP 142/72 02/18/19 04:31 Pulse Ox 95 02/18/19 09:37 - Physical Examination General: No Apparent Distress HEENT: Positive: PERRL, Normocephaly, Mucus Membranes Moist Neck: Positive: neck supple, trachea midline Cardiac: Positive: Reg Rate and Rhythm, S1/S2 Lungs: Positive: Decreased Breath Sounds Neuro: Positive: Grossly Intact Abdomen: Positive: Soft. Negative: Tender Skin: Negative: Rash, Wound Musculoskeletal: No Pain Extremities: Absent: edema - Labs and Meds Coagulation 02/18/19 Range/Units 04:12 PT 14.3 (12.2-14.9) Sec. INR 1.14 H (0.87-1.13) CBC 02/18/19 Range/Units 04:12 WBC 6.7 (4.5-11.0) K/mm3 RBC 4.55 (3.65-5.03) M/mm3 Hgb 12.9 (11.8-15.2) gm/dl Hct 38.5 (35.5-45.6) % Plt Count 238 (140-440) K/mm3 Lymph # 1.1 L (1.2-5.4) K/mm3 [place] # 0.6 (0.0-0.8) K/mm3 Eos # 0.2 (0.0-0.4) K/mm3 Baso # 0.0 (0.0-0.1) K/mm3 Comprehensive Metabolic Panel 02/18/19 Range/Units 04:12 Sodium 144 (137-145) mmol/L Potassium 3.4 L (3.6-5.0) mmol/L Chloride 105.8 (98-107) mmol/L Carbon Dioxide 24 (22-30) mmol/L BUN 21 H (9-20) mg/dL Creatinine 1.0 (0.8-1.5) mg/dL Glucose 133 H (75-100) mg/dL Calcium 8.8 (8.4-10.2) mg/dL - Imaging and Cardiology EKG: report reviewed, image reviewed Echo: pending Cardiac cath: pending - EKG Sinus rhythms and dysrhythmias: sinus rhythm Repolarization changes or abnormalities: ST or T wave suggestive of ischemia
[2019-02-18] MEDS: COREG PO SCH (11:21)
[2019-02-18] MEDS: WELLBUTRIN XL PO SCH (11:23)
[2019-02-18] MEDS: PROzac PO SCH (11:24)
[2019-02-18] MEDS: IMODIUM PO SCH ×2 (11:24→13:50)
[2019-02-18] MEDS: IMDUR PO SCH (11:24)
[2019-02-18] MEDS: PLAVIX PO SCH (11:24)
[2019-02-18] MEDS: PEPCID IV SCH (11:25)
[2019-02-18] MEDS: ZETIA PO SCH (11:25)
[2019-02-18] MEDS: ZESTRIL PO SCH (11:25)
--- NOTE | 2019-02-18 13:28 | Discharge Summary ---
Providers - Providers Date of Admission: 02/17/19 01:59 Date of discharge: 02/18/19 Attending physician: RONNI SEARS 02/16/19 23:38 Consult to Cardiology [CONS] Routine Consulting Provider: FELI PLAZA Reason For Exam: NSTEMI- notified by Dr. Allen @ 2335 02/18/19 10:26 Consult to Cardiac Rehabilitation [CONS] Routine Reason For Exam: Cardiac Rehab Evaluation [facility] Condition: Serious Disposition: DC-01 TO HOME OR SELFCARE Time spent for discharge: 32 min Core Measure Documentation - Palliative Care Palliative Care/ Comfort Measures: Not Applicable - Core Measures Any of the following diagnoses?: heart failure - Heart Failure Discharge Requirements NAVYA/ARB for LVSD if EF <40%: Yes Beta leah at discharge: Yes Exam - Constitutional Vitals: Temp Pulse Resp BP Pulse Ox 97.6 F 76 16 122/71 92 02/18/19 12:17 02/18/19 12:17 02/18/19 12:17 02/18/19 12:17 02/18/19 12:17 General appearance: Present: no acute distress, well-nourished - EENT Eyes: Present: PERRL, EOM intact - Neck Neck: Present: supple, normal ROM - Respiratory Respiratory effort: normal Respiratory: bilateral: diminished, rales, negative: rhonchi, wheezing - Cardiovascular Rhythm: regular Heart Sounds: Present: S1 & S2 - Extremities Extremities: no ischemia, No edema - Abdominal General gastrointestinal: Present: soft, non-tender, non-distended, normal bowel sounds - Integumentary Integumentary: Present: clear, warm - Musculoskeletal Musculoskeletal: strength equal bilaterally - Psychiatric Psychiatric: appropriate mood/affect, cooperative - Neurologic Neurologic: CNII-XII intact, moves all extremities Plan Activity: advance as tolerated Additional Instructions: Follow-up primary care physician in 3-5 days. Follow- up private meal cooker from out of town per schedule. Hold Metformin and resume on 02/20/19 evening dose Follow up with: DAVID GOMEZ MD [Primary Care Provider] - 3-5 Days
[2019-02-18 17:28] VITALS: BP 111/56
[2019-02-19] MEDS ORDERED: BABY ASPIRIN PO SCH (10:00)
== END 2019-02-18 18:12 | disposition home or self-care (01) | DRG 281 ==
LOC: ED 17:54 → 4A 02-17 01:59
PROVIDERS: ADMIT Hospitalist; ATTEND Internal Medicine
PROC: 4A023N7 Measurement of Cardiac Sampling and Pressure, Left Heart, Percutaneous Approach (ICD-10-PCS; principal; 2019-02-18)
PROC: B2111ZZ Fluoroscopy of Multiple Coronary Arteries using Low Osmolar Contrast (ICD-10-PCS; 2019-02-18)
PROC: B2151ZZ Fluoroscopy of Left Heart using Low Osmolar Contrast (ICD-10-PCS; 2019-02-18)
DX: I21.4 Non-ST elevation (NSTEMI) myocardial infarction (principal); I47.2 Ventricular tachycardia; I11.0 Hypertensive heart disease with heart failure; I50.9 Heart failure, unspecified; I45.81 Long QT syndrome; I25.10 Atherosclerotic heart disease of native coronary artery without angina pectoris; J44.9 Chronic obstructive pulmonary disease, unspecified; I48.91 Unspecified atrial fibrillation; Z95.5 Presence of coronary angioplasty implant and graft; I25.2 Old myocardial infarction; Z88.0 Allergy status to penicillin; Z88.2 Allergy status to sulfonamides
CPT/HCPCS: 36415; 70450; 70486; 71045; 71275; 80048; 80061; 82962; 83735; 83880; 84443; 84484; 85025; 85379; 85520; 85610; 85730; 93005; 93010; 93306; 93458; 94760; G0378; A9270-GY; C1894; J1644; J1815; J2250; J3010; J7040; Q9967